=== PATIENT | female | born 1985 | race Hispanic/Latino ===

== ENCOUNTER → 2018-12-27 | Outpatient (CLI) | payer OTHER ==
[~2018-12-27] MED LIST: Z ERYTHROMYCIN
--- NOTE | 2018-12-27 12:23 | Diagnostic Imaging Report ---
Examination: Ultrasound of the neck Clinical indication: Right-sided neck pain. Comparison examination: None available. Technique: Transverse and longitudinal sonographic images of the right side of the neck were obtained. Findings: Limited evaluation of the right cervical region, the area of clinical concern shows no focal mass lesion or fluid collection. Impression: No mass lesion or fluid collection is identified in the area of clinical concern. Signed by: Dr. Luis Escobar M.D. on 12/27/2018 12:19 PM
== END ==
LOC: US 11:08
PROVIDERS: ATTEND Family Medicine
DX: M54.2 Cervicalgia (principal)
CPT/HCPCS: 76536